=== PATIENT | female | born 1985 | race Caucasian/White ===

== ENCOUNTER 2021-10-09 23:52 | Emergency (ER) | payer BC ==
[2021-10-10] MEDS ORDERED: Doxycycline 100 MG Cap PO STA (00:18)
[2021-10-10] MEDS ORDERED: Acetaminophen/HYDROcodone 325-5 MG Tab PO ONE (00:22)
[2021-10-10] MEDS ORDERED: metroNIDAZOLE 500 MG Tab PO STA (00:22)
[2021-10-10] MEDS ORDERED: Lidocaine 1% with EPINEPHrine 1:100,000 10 ML MDV INJECT ONE (00:23)
[2021-10-10] MEDS ORDERED: Bupivacaine 0.5% 10 ML SDV INJECT ONE (00:23)
[2021-10-10] MEDS ORDERED: Lidocaine 1% with EPINEPHrine 1:100,000 20 ML MDV ONE (00:28)
[2021-10-10] MEDS ORDERED: Lidocaine 1% with EPINEPHrine 1:100,000 20 ML MDV INJECT ONE (00:32)
== END 2021-10-10 01:20 | disposition home or self-care (01) ==
LOC: JD.ED 23:52
DX: S51.852A Open bite of left forearm, initial encounter (principal); S51.851A Open bite of right forearm, initial encounter; S91.352A Open bite, left foot, initial encounter; F17.210 Nicotine dependence, cigarettes, uncomplicated; Z88.0 Allergy status to penicillin; W55.01XA Bitten by cat, initial encounter
CPT/HCPCS: 12001; 99283; A9270; J3490